=== PATIENT | male | born 2000 | race Hispanic/Latino ===

== ENCOUNTER 2025-06-24 12:18 | Emergency (ER) | payer OTHER ==
[~2025-06-24] VITALS: Ht 175.3 cm; Wt 102.6 kg
[2025-06-24 14:15] VITALS: BP 111/65; O2SAT 97
[2025-06-24 14:23] VITALS: TEMP 97.8
== END 2025-06-24 14:33 | disposition home or self-care (01) ==
LOC: EDBD 12:18 → M ED 12:18
DX: Z04.1 Encounter for examination and observation following transport accident (principal)